=== PATIENT | female | born 1990 | race Two or more races ===

== ENCOUNTER 2023-08-13 09:10 | Observation (INO) | payer MEDICAID ==
[~2023-08-13] VITALS: Ht 162.6 cm; Wt 102.1 kg
[2023-08-13 10:53] LABS: Basophils # (auto) 0 10 ^3/uL (0-0.2); Basophils % (auto) 0.1 % (0.0-2.0); Eosinophils # (auto) 0 10 ^3/uL (0-0.8); Eosinophils % (auto) 0.4 % (0.0-7.0); Hematocrit 35.1 % (36.0-46.0); Hemoglobin 11.5 g/dL (12.2-16.2); Lymphocytes # (auto) 1.9 10 ^3/uL (0.4-5.4); Lymphocytes % (auto) 16.3 % (10.0-50.0); Mean Corpuscular Hemoglobin 27.1 pg (28.0-32.0); Mean Corpuscular Hgb Conc. 32.8 g/dL (32.0-36.0); Mean Corpuscular Volume 82.7 fL (80.0-100.0); Monocytes # (auto) 0.8 10 ^3/uL (0-1.3); Monocytes % (auto) 7.1 % (0.0-12.0); Neutrophils % (auto) 76.1 % (37.0-80.0); Nucleated Red Blood Cells % 0.1 %; Red Blood Cells 4.25 10^6/uL (4.0-5.20); Red Cell Distribution Width 15.8 % (11.8-14.3); White Blood Cell 11.9 10^3/uL (4.4-10.8)
[2023-08-13 11:12] LABS: Albumin 3.9 g/dL (3.2-4.8); Alkaline Phosphatase 134 U/L (46-116); Anion Gap 8 (5-15); Aspartate Aminotransferase 9 U/L (13-40); Bilirubin, Total 0.2 mg/dL (0.2-1.0); Calcium 8.9 mg/dL (8.7-10.4); Carbon Dioxide 23 mmol/L (20-30); Chloride 105 mmol/L (98-107); Glucose 70 mg/dL (74-106); Potassium 3.8 mmol/L (3.5-5.1); Sodium 136 mmol/L (136-145); Total Protein 6.8 g/dL (5.7-8.2); Uric Acid 4.6 mg/dL (3.1-7.8)
[2023-08-13 11:22] LABS: INR 1.02 (0.9-1.15); Partial Thromboplastin Time 31.6 SEC (24.5-34.5); Prothrombin Time 10.7 sec (9.3-11.8)
[2023-08-13 11:31] LABS: Alanine Aminotransferase < 9 U/L (7-40); BUN/Creatinine Ratio 9.6 (10.0-20.0); Blood Urea Nitrogen < 5 mg/dL (9-23)
[2023-08-13] MEDS ORDERED: NIFE1TAB31 PO (11:39)
[2023-08-13 11:43] LABS: Protein, Urine 14.8 mg/dL (0.0-11.9)
[2023-08-13] MEDS ORDERED: NIFEdipine 10 MG CAP PO ONE (11:45)
[2023-08-13 11:46] LABS: Creatinine, Urine 194.47 mg/dL (30.0-125.0); Urine Protein/Creatinine Ratio 0.08
[2023-08-13] MEDS: TERBUTALINE SULFATE 1 MG/ML 1ML VIAL SC SCH ×2 (12:34→12:58)
== END 2023-08-13 13:51 | disposition home or self-care (01) ==
LOC: LDRP 09:10 → UNDOADMOB 09:10 → LDRP 09:25 → UNDODISOB 13:51
PROVIDERS: ADMIT Obstetrics & Gynecology; ATTEND Obstetrics & Gynecology
DX: O99.353 Diseases of the nervous system complicating pregnancy, third trimester (principal); G44.209 Tension-type headache, unspecified, not intractable; Z3A.34 34 weeks gestation of pregnancy
CPT/HCPCS: 36415; 59025; 76818; 80053; 81002; 82570; 84156; 84550; 85025; 85610; 85730; 96372; G0378; J3105

== ENCOUNTER 2023-08-31 11:20 | Observation (INO) | payer MEDICAID ==
[~2023-08-31 11:20] MED LIST: NIFE1TAB31 PO
[2023-08-31 12:55] LABS: Fern Testing Negative
== END 2023-08-31 13:14 | disposition home or self-care (01) ==
LOC: LDRP 11:20 → UNDOADMOB 11:20 → LDRP 11:53 → UNDODISOB 13:14
PROVIDERS: ADMIT Obstetrics & Gynecology; ATTEND Obstetrics & Gynecology
DX: O62.9 Abnormality of forces of labor, unspecified (principal); O42.92 Full-term premature rupture of membranes, unspecified as to length of time between rupture and onset of labor; Z3A.37 37 weeks gestation of pregnancy
CPT/HCPCS: 59025; 81002; 84112; G0378; Q0114

== ENCOUNTER 2023-09-10 12:40 | Observation (INO) | payer MEDICAID | END 2023-09-10 14:30 | disposition home or self-care (01) | LOC: LDRP 12:40 → UNDOADMOB 12:40 → LDRP 12:48 → UNDODISOB 14:30 | PROVIDERS: ADMIT Obstetrics & Gynecology; ATTEND Obstetrics & Gynecology | DX: O36.8130 Decreased fetal movements, third trimester, not applicable or unspecified (principal); O26.893 Other specified pregnancy related conditions, third trimester; R51.9 Headache, unspecified; M54.9 Dorsalgia, unspecified; Z3A.38 38 weeks gestation of pregnancy | CPT/HCPCS: 59025; 76805; 76818; 81002; G0378 ==